=== PATIENT | male | born 1960 | race Caucasian/White ===

== ENCOUNTER 2016-09-23 07:48 | Day surgery (SDC) | payer OTHER ==
[~2016-09-23] VITALS: Ht 180.3 cm; Wt 83.9 kg
[~2016-09-23 07:48] MED LIST: 0.9% Sodium Chloride 1,000 ML IV PRN; ALBU18HF INH; HYG25 PO; OMEP20CA11 PO; SERT25TA6 PO
[2016-09-23] MEDS ORDERED: Sodium Chloride LOK Flush 10 mL Syringe IV PRN (07:50)
[2016-09-23] MEDS ORDERED: fentaNYL-PF 50 mCg/mL 2 mL Inj IVPUSH PRN (07:50)
[2016-09-23 08:23] VITALS: BP 148/94; PULSE 69; RESP 16; O2SAT 96
--- NOTE | 2016-09-23 09:49 | PCM.ENDCOL ---
Colonoscopy Date of Service: Sep 23, 2016 Physician Marco A Levy MD Pre Procedure Diagnosis: Screening history of polyps Post Procedure Dx & Findings: Polyp hemorrhoids diverticula Procedure Colonoscopy PROCEDURE IN DETAIL: Prep adequate Withdrawal time 14 minutes After unremarkable rectal examination the Olympus video colonoscope was inserted patient's anal canal and was advanced to cecum. Landmarks were identified including the ileocecal valve and appendiceal orifice. Scope was withdrawn systematically. Visualized colonic mucosa showed healthy shiny mucosa with normal healthy-appearing vasculature. In the cecum, there was a 6-7 mm flat polyp. Due to the acute angle, piecemeal resection done using snare. In the transverse colon, there was a 1 mm polyp which was removed completely using cold forceps. In the descending colon there was a 3 mm polyp which was removed completely using cold snare. In the sigmoid colon there were two 3 mm polyps which were all removed completely using cold snare. In the sigmoid colon, there were few diverticula. In the rectum retroflexion was done which showed hemorrhoids. Anal canal was inspected carefully on the way out and hemorrhoids noted. Impression Polyps 5 status post complete removal. The cecal polyp was removed in a piecemeal fashion due to the angle. Diverticula Hemorrhoids Recommendation Repeat colonoscopy1 year if the cecal polyp comes back as adenomatous or serrated adenoma ensure complete removal. If its hyperplastic, repeat colonoscopy in 3 years. Diverticular diet Presedation Assessment Risks and Benefits Informed consent was obtained from the patient after all risks and benefits including but not limited to drug reaction, infection, pain, bleeding, perforation, as well as alternatives were discussed. Patient monitoring Continuous pulse oximetry, cardiac monitoring, blood pressure monitoring, IV access, and oxygen at 2L per nasal cannula. Periprocedural Fentanyl: Fentanyl 150mcg Incrementally Midazolam: Midazolam 6mg Incrementally Complications There were no periprocedural complications identified. Post Procedure Plan Post Procedure Recommendations 1. Restrict activities today. 2. Resume normal activities in the morning. 3. Resume medications. 4. Patient informed of normal post procedure side effects as bloating, drowsiness, blood streaking in the stool. 5. average risk CRCS. If colon polyps come back as: -Hyperplastic- can repeat colonoscopy in 10 years -Tubular adenoma- repeat colonoscopy in 5 years -Tubulovillous/villous adenoma- repeat colonoscopy in 3 years -If any dysplasia- return to clinic as soon as possible 6. Please don't hesitate to call me with any questions. Marco A Levy MD Sep 23, 2016 09:49
[2016-09-23 09:51] VITALS: BP 141/88; PULSE 69; RESP 14; O2SAT 93
[2016-09-23 10:00] VITALS: BP 142/92; PULSE 69; RESP 14; O2SAT 96
--- NOTE | 2016-09-24 10:51 | PATH ---
SURGICAL PATHOLOGY Attending Physician:Marco A Levy M.D. CASE STATUS: Signed Out PATIENT NAME: KAYA KAPLAN PID: [id number] : 1960 DATE COLLECTED:09/23/2016 17:43 SPECIMEN: 1: Colon, Biopsy 2: Colon, Biopsy 3: Colon, Biopsy 4: Colon, Biopsy CLINICAL HISTORY: 1). CECUM POLYP 2). TRANSVERSE POLYP 3). DESCENDING POLYP 4). SIGMOID POLYPS FINAL DIAGNOSIS: 1. Cecum Polyp: Sessile serrated adenoma. 2. Transverse Colon Polyp: Tubular adenoma involving both biopsy fragments. 3. Descending Colon Polyp: Tubular adenoma involving single biopsy fragment. 4. Sigmoid Colon Polyps: Tubular adenoma involving two biopsy fragments. Hyperplastic polyp involving three biopsy fragments. ICD10: D12.0 GROSS DESCRIPTION: The specimen is received in four formalin filled containers labeled with the patient's name. 1). The specimen is sublabeled "cecum polyp" and consists of 5 portions of tissue which aggregate to 0.6 x 0.5 x 0.5 CM. The specimen is entirely submitted in cassette 1A. 2). The specimen is sublabeled "transverse polyp" and consists of 2 portions of tissue which aggregate to 0.3 x 0.3 x 0.2 CM. The specimen is entirely submitted in cassette 2A. 3). The specimen is sublabeled "descending polyp" and consists of 3 portions of tissue which aggregate to 0.3 x 0.3 x 0.2 CM. The specimen is entirely submitted in cassette 3A. 4). The specimen is sublabeled "sigmoid polyp" and consists of multiple portions of tissue which aggregate to 0.6 x 0.5 x 0.4 CM. The specimen is entirely submitted in cassette 4A. 09/23/2016 [facility] ICD-9 CODES: CPT CODES: 1: 74102 2: 93661 3: 88164 4: 70941 Electronically Signed Out Jesus Echeverria MD [facility] [place] [address] Technical component performed at [facility], [facility] [address], [address]
== END 2016-09-23 23:59 | disposition home or self-care (01) ==
LOC: END 07:48
PROVIDERS: ATTEND Internal Medicine
DX: Z12.11 Encounter for screening for malignant neoplasm of colon (principal); D12.0 Benign neoplasm of cecum; D12.3 Benign neoplasm of transverse colon; D12.4 Benign neoplasm of descending colon; D12.5 Benign neoplasm of sigmoid colon; K57.30 Diverticulosis of large intestine without perforation or abscess without bleeding; K64.8 Other hemorrhoids; Z86.010 Personal history of colon polyps; Z80.0 Family history of malignant neoplasm of digestive organs; I10 Essential (primary) hypertension; K21.9 Gastro-esophageal reflux disease without esophagitis; E78.5 Hyperlipidemia, unspecified; F32.1 Major depressive disorder, single episode, moderate; G47.00 Insomnia, unspecified; J45.909 Unspecified asthma, uncomplicated; Z79.51 Long term (current) use of inhaled steroids
CPT/HCPCS: 45380; 45385; 99153; G0500; J2250; J3010; J7030